=== PATIENT | male | born 1995 | race Caucasian/White ===

== ENCOUNTER 2020-11-01 19:40 | Emergency (ER) | payer OTHER, SELFPAY ==
[2020-11-01 19:41] VITALS: BP 118/70; PULSE 57; RESP 16; TEMP 35.9; O2SAT 98; BMI 34.9
[2020-11-01] MEDS: Lidocaine 1% (20 ml mdv) 20 ML Vial INFILT (20:22)
--- NOTE | 2020-11-01 20:41 | ED.VIS.GEN ---
History of Present Illness Chief Complaint: Laceration Informant: Patient Onset: Today Narrative: 25-year-old male sustained a right next finger laceration when he was changing a switch on a compressor and he turned it on and the motor came out and hit him. He sustained 4 lacerations linear along the dorsal surface of the proximal phalanx of the right index finger. He notes his last tetanus shot was 3 years ago. Past Medical History - Allergies and Home Meds Allergies/Adverse Reactions: Allergies amoxicillin Allergy (Intermediate, Verified 11/01/20 19:43) Chest tightness Primary Care Physician: Care Physician,No Primary [Primary Care Provider] - Past Medical History: None Surgical History: noncontributory Lives: Spouse/ Significant Other, With Family Smoking Status: Never smoker Alcohol: None Drugs: None Review of Systems General: Denies: Chills, Fever, Sweats Eyes: Denies: Visual changes - bilaterally, Diplopia ENT: Denies: Rhinorrhea, Sore throat Cardiovascular: Denies: Chest pain, Palpitations Respiratory: Denies: Dyspnea, Cough, Dyspnea on exertion Gastrointestinal: Denies: Abdominal pain, Nausea, Vomiting, Diarrhea, Melena, Hematochezia Genitourinary: Denies: Dysuria, Hematuria, Frequency Musculoskeletal: Denies: Back pain, Extremity Pain Skin: Reports: Wounds. Denies: Rash Neurological: Denies: Headache, Weakness, Numbness Physical Exam Vital Signs/Narrative: Vital Signs Temp Pulse Resp BP Pulse Ox 11/01/20 19:41 96.7 F L 57 L 16 118/70 98 Inital Vital Signs reviewed: Yes General: Well nourished, Well developed, No Acute Distress Head: Normocephalic, Atraumatic Eyes: Perrl, EOMI ENT: Moist mucous membranes, No rhinorrhea Neck: Supple, Nontender Cardiovascular: Regular rate, Regular rhythm, No murmurs Respiratory: No distress, CTA bilaterally, Chest nontender Abdomen: Soft, Nontender, Nondistended, Normal bowel sounds Back: Nontender, Normal Inspection Extremities: Nontender, No edema Skin: Normal color, No rash, Trauma - There are 2 lacerations measuring 1.5 cm and 2 lacerations measuring 2 cm along the surface of the right index finger along the proximal phalanx. These are linear and resulting in little slices of skin that are about 2 to 3 mm wide in between each lack. Extensor mechanism intact Neurological: Alert, Oriented x3, Cranial nerves II-XII grossly intact, Normal Strength, Normal Sensation Psychological: Normal affect, Normal Mood Diagnostic/Tx/Re-eval - Medical Decision Making The wound was locally anesthetized using 1% lidocaine washed with Shur-Clens and explored. It was closed using a total of 11 simple erupted 5-0 Ethilon sutures. Patient was advised this will leave scarring. Good homeostasis was obtained. I did not visualize any tendon or tendon injury in the lacerations. No significant foreign bodies were noted. Wound care discussed with patient and recommend stitches removed in 10 days. ED Disposition - Plan for ED Patient: Disposition: Home or Assisted Living Diagnosis: Laceration of multiple sites of right hand and fingers Instructions: ED Laceration, Hand: All Closures Referrals: Taylor Philip MD [STAFF PHYSICIAN] - 10 Day for suture removal
[2020-11-01 21:08] VITALS: RESP 18
== END 2020-11-01 21:08 | disposition home or self-care (01) ==
PROVIDERS: Emergency Provider Emergency Medicine
DX: S61.210A Laceration without foreign body of right index finger without damage to nail, initial encounter (principal); W26.8XXA Contact with other sharp object(s), not elsewhere classified, initial encounter; Y93.89 Activity, other specified; Y92.89 Other specified places as the place of occurrence of the external cause; Y99.8 Other external cause status
CPT/HCPCS: 12002; 99284

== ENCOUNTER 2022-04-19 21:18 | Emergency (ER) | payer OTHER, SELFPAY ==
[2022-04-19 21:19] VITALS: BP 127/73; PULSE 87; RESP 18; TEMP 36.4; O2SAT 98; BMI 35.5
--- NOTE | 2022-04-19 21:24 | CT_ITS ---
STUDY: CT BRAIN WITHOUT CONTRAST REASON FOR EXAM: Male, 26 years old. Unequal pupils. Swelling and redness of the left eye with headache and blurry vision for one day. RADIATION DOSAGE (If Supplied By Facility): CTDIvol = ( 44.99 ) mGy, DLP = ( 779.24 ) mGycm TECHNIQUE: Transaxial CT imaging of the brain was performed without administration of intravenous contrast material. Individualized dose optimization techniques were used for this CT. COMPARISON: No relevant priors. FINDINGS: Normal soft tissue structures. Normal calvarium. Normal size ventricles and extra-axial spaces for the patient''s age. Normal white matter tracts of the cerebral hemispheres. Normal basal ganglia and thalami. Normal brainstem. Normal cerebellum. There is no intracranial hemorrhage. There are no findings of an acute ischemic infarction. Focal periosteal reaction is seen bilateral maxillary sinuses. CT/Brain/Head without Contrast IMPRESSION: 1. Normal unenhanced CT scan of the brain. 2. Maxillary sinusitis. Electronically Signed: Lemuel Licona DO at 21:44 EDT ,
[2022-04-19 22:55] VITALS: BP 116/69; PULSE 50; RESP 18; O2SAT 100
[2022-04-19] MEDS: Fluorescein 1 MG STRIP 1 STRIP LEFT EYE (23:36)
[2022-04-19] MEDS: Tetracaine 0.5% Ophthalmic Bottle 1 DRP LEFT EYE (23:36)
--- NOTE | 2022-04-20 00:34 | EDS_ITS ---
HPI History of Present Illness Chief Complaint: Eye Problem Narrative Narrative: Patient is a 26-year-old male who wears contacts. He states yesterday he was weed whacking when he felt like something struck him in the left eye. He states he did not think much of it as he felt it did not get in his eye. However as time progressed he noticed increased redness swelling tearing and blurred vision and secondary to this comes in for evaluation. PFSH PFS Medical History no medical history Home Medications ciprofloxacin HCl 0.3 % eye drops 2 drp LEFT EYE 4X/DAY 5 days #10 mL 04/20/22 [Rx Last Taken Unknown] Allergy/AdvReac Type Severity Reaction Status Date / Time amoxicillin Allergy Intermediate Chest Verified 04/19/22 21:25 tightness Social History Smoking Status: Never smoker ROS ROS ED Constitutional Constitutional ED: Denies chills or fever(s) Eyes Eyes: Reports blurry vision and change in vision ENT ENT ED: Denies sore throat Cardiovascular Cardiovascular: Denies chest pain Respiratory/Chest Respiratory/Chest: Denies cough or dyspnea Gastrointestinal Gastrointestinal: Denies abdominal pain, diarrhea, nausea or vomiting Genitourinary Genitourinary ED: Denies dysuria Musculoskeletal Musculoskeletal: Denies myalgias Integumentary Denies rash Neurologic Neurologic: Denies headache(s) Hematologic/Lymphatic Hematologic/Lymphatic: Denies easy bleeding or easy bruising EXAM Physical Exam Const Vital Signs: 04/19/22 21:19 04/19/22 22:55 Temperature 97.6 F L Temperature Source Temporal Pulse Rate 87 50 L Respiratory Rate 18 18 Blood Pressure 127/73 H 116/69 Blood Pressure Mean 91 84 Pulse Ox 98 100 Oxygen Delivery Method Room Air Room Air Positive well nourished and well developed General Appearance ED: well developed Eyes PERRL and EOMs intact bilaterally Eyes Narrative: Left eye has scleral injection with increased tearing. Upper lid was everted there is no foreign body present. Stauffer lamp exam shows a corneal abrasion over top the pupil without retained foreign body. Negative Adam sign. Neck supple Resp normal respiratory effort and clear to auscultation bilaterally Cardio regular rate and regular rhythm Extremity normal to inspection Neuro oriented x3 and CN's II-XII intact bilaterally Sensorium / Orientation: alert Psych mental status grossly normal Skin no rashes or lesions noted MDM MDM MDM Narrative Medical decision making narrative: Patient presented to the ER with stable vitals and a history concerning for corneal abrasion. Patient had complete relief of pain with tetracaine and exam did show a corneal abrasion over top of the pupil. There is no retained foreign body or signs of globe rupture therefore there is no need for emergent ophthalmology consultation. Patient replaced on ciprofloxacin ophthalmic drops secondary to the abrasion with contact lens use. However as there is no signs of globe rupture or history of chemical exposure he can be discharged home to follow-up with ophthalmology if symptoms fail to improve or worsen. Radiography Diagnostic Testing: Clinical Impression(s) from Imaging Studies Brain CT 04/19/22 21:24 IMPRESSION: 1. Normal unenhanced CT scan of the brain. 2. Maxillary sinusitis. Electronically Signed: Lemuel Licona DO at 21:44 EDT Reading Location ID and State: [address] [place] [address] Tel [phone], Service support , Discharge Plan Triage Chief Complaint: Eye Problem ED Provider: Edward Simons Dx/Rx/DC Orders Clinical Impression: Injury of conjunctiva and corneal abrasion of left eye w/o FB Instructions: Corneal Injury Prescriptions: New ciprofloxacin HCl 0.3 % drops 2 drp LEFT EYE 4X/DAY 5 Days Qty: 10 0RF Rx Instructions: administer while awake Primary Care Provider: Care Physician,No Primary Referrals: Charity Junior MD [Med Staff - Active Staff] - 3-5 Days if not improving Care Physician,No Primary [Primary Care Provider] - Disposition Disposition: Home, Self Care Discharge Date/Time: 04/20/22 00:49
[2022-04-20] MEDS: Ciprofloxacin 0.3% 2.5ml Bottle 2 DRP LEFT EYE (00:47)
[2022-04-20 00:49] VITALS: PULSE 70; RESP 18; O2SAT 100
== END 2022-04-20 00:49 | disposition home or self-care (01) ==
PROVIDERS: Emergency Provider Emergency Medicine; Visit Provider Emergency Medicine
DX: S05.02XA Injury of conjunctiva and corneal abrasion without foreign body, left eye, initial encounter (principal); W22.8XXA Striking against or struck by other objects, initial encounter; Y93.H2 Activity, gardening and landscaping; Z97.3 Presence of spectacles and contact lenses
CPT/HCPCS: 70450; 99283